=== PATIENT | female | born 1970 | race Caucasian/White ===

== ENCOUNTER → 2017-03-21 | Outpatient (CLI) | payer BC ==
--- NOTE | 2017-03-23 10:47 | MM ---
Reason for exam: screening (asymptomatic). Last mammogram was performed 1 year ago. History: Family history of breast cancer in mother at age 48 and breast cancer in paternal aunt at age 20. Took hormonal contraceptives for 20 years beginning at age 17. Physical Findings: A clinical breast exam by your physician is recommended on an annual basis and results should be correlated with mammographic findings. MG Screening Mammo w CAD Bilateral CC and MLO view(s) were taken. Prior study comparison: March 16, 2016, bilateral MG screening mammo w CAD. March 28, 2014, bilateral MG screening mammo w CAD. The breast tissue is heterogeneously dense. This may lower the sensitivity of mammography. Asymmetric nodular density upper left MLO view and inner CC view. ASSESSMENT: Incomplete: need additional imaging evaluation, BI-RAD 0 RECOMMENDATION: Special view mammogram of the left breast. If lesion persists on supplemental views, image directed ultrasound is recommended. [facility] will attempt to contact patient to return for supplemental views and ultrasound if indicated.
== END | disposition home or self-care (01) ==
LOC: RADMAMWWP 14:33
PROVIDERS: ATTEND Obstetrics & Gynecology
DX: Z12.31 Encounter for screening mammogram for malignant neoplasm of breast (principal); Z80.3 Family history of malignant neoplasm of breast

== ENCOUNTER → 2017-03-29 | Outpatient (CLI) | payer BC ==
--- NOTE | 2017-03-30 07:23 | MM ---
Reason for exam: additional evaluation requested from abnormal screening. Last mammogram was performed less than 1 month ago. History: Family history of breast cancer in mother at age 48 and breast cancer in paternal aunt at age 20. Took hormonal contraceptives for 20 years beginning at age 17. Physical Findings: Nurse did not find any significant physical abnormalities on exam. MG Work Up Mamm w CAD LT Spot compression CC, spot compression MLO, and LM view(s) were taken of the left breast. Prior study comparison: March 21, 2017, bilateral MG screening mammo w CAD. March 16, 2016, bilateral MG screening mammo w CAD. March 28, 2014, bilateral MG screening mammo w CAD. Asymmetric nodular density does not completely go away on spot CC view. These results were verbally communicated with the patient and result sheet given to the patient on 03/29/17. ASSESSMENT: Incomplete: need additional imaging evaluation, BI-RAD 0 RECOMMENDATION: Ultrasound of the left breast.
--- NOTE | 2017-03-30 07:24 | USB ---
Reason for exam: additional evaluation requested from abnormal screening. History: Family history of breast cancer in mother at age 48 and breast cancer in paternal aunt at age 20. Took hormonal contraceptives for 20 years beginning at age 17. US Breast Workup Limited LT Left breast ultrasound demonstrates a 0.7 x 0.4 x 0.8cm oval, cystic lesion at 2 o'clock. These results were verbally communicated with the patient and result sheet given to the patient on 03/29/17. ASSESSMENT: Benign, BI-RAD 2 RECOMMENDATION: Return to routine screening mammogram schedule for both breasts.
== END | disposition home or self-care (01) ==
LOC: RADMAMWWP 14:30
PROVIDERS: ATTEND Obstetrics & Gynecology
DX: R92.8 Other abnormal and inconclusive findings on diagnostic imaging of breast (principal)
CPT/HCPCS: 76642; G0206

== ENCOUNTER → 2017-06-29 | Outpatient (CLI) | payer BC | END | disposition home or self-care (01) | LOC: LABWHC1 16:29 | PROVIDERS: ATTEND Otolaryngology | DX: J30.89 Other allergic rhinitis (principal) | CPT/HCPCS: 36415 ==

== ENCOUNTER → 2018-01-10 | Outpatient (CLI) | payer OTHER ==
--- NOTE | 2018-01-10 13:01 | XR ---
EXAMINATION TYPE: XR knee complete RT DATE OF EXAM: 01/10/2018 COMPARISON: NONE HISTORY: Pain TECHNIQUE: 3 views are submitted. FINDINGS: Joint spaces are preserved. Osseous structures are intact. No acute fracture seen. Small amount of fluid in the suprapatellar bursa. IMPRESSION: 1. No acute fracture or dislocation.
--- NOTE | 2018-01-10 13:02 | XR ---
EXAMINATION TYPE: XR shoulder complete LT DATE OF EXAM: 01/10/2018 COMPARISON: NONE HISTORY: Pain TECHNIQUE: Three views are submitted. FINDINGS: The osseous structures are intact. There is no acute fracture or dislocation. Arthropathy of the AC joint with a prominent spur extending off the acromium. IMPRESSION: 1. Hypertrophic change of the acromium correlate for chronic rotator cuff disease. Correlate with MRI if there is concern for rotator cuff tear.
== END | disposition home or self-care (01) ==
LOC: RADXRMAIN 12:17
PROVIDERS: ATTEND Emergency Medicine
DX: S43.402A Unspecified sprain of left shoulder joint, initial encounter (principal); S80.01XA Contusion of right knee, initial encounter

== ENCOUNTER → 2018-03-24 | Outpatient (CLI) | payer BC ==
--- NOTE | 2018-03-28 08:13 | MM ---
Reason for exam: screening (asymptomatic). Last mammogram was performed 1 year ago. History: Family history of breast cancer in mother at age 48 and breast cancer in paternal aunt at age 20. Took hormonal contraceptives for 20 years beginning at age 17. Physical Findings: A clinical breast exam by your physician is recommended on an annual basis and results should be correlated with mammographic findings. MG Screening Mammo w CAD Bilateral CC and MLO view(s) were taken. Prior study comparison: March 21, 2017, bilateral MG screening mammo w CAD. March 16, 2016, bilateral MG screening mammo w CAD. March 28, 2014, bilateral MG screening mammo w CAD. The breast tissue is heterogeneously dense. This may lower the sensitivity of mammography. Regional punctate calcifications left upper outer quadrant unchanged. Asymmetric density lateral subareolar left breast is more defined and there may be underlying nodularity. ASSESSMENT: Incomplete: need additional imaging evaluation, BI-RAD 0 RECOMMENDATION: Special view mammogram of the left breast. If lesion persists on supplemental views, image directed ultrasound is recommended. [facility] will attempt to contact patient to return for supplemental views and ultrasound if indicated.
== END | disposition home or self-care (01) ==
LOC: RADMAMWWP 09:09
PROVIDERS: ATTEND Family Medicine
DX: Z12.31 Encounter for screening mammogram for malignant neoplasm of breast (principal)
CPT/HCPCS: 77067

== ENCOUNTER → 2018-03-31 | Outpatient (CLI) | payer BC ==
--- NOTE | 2018-04-03 08:36 | MM ---
Reason for exam: additional evaluation requested from abnormal screening. Last mammogram was performed less than 1 month ago. History: Family history of breast cancer in mother at age 48 and breast cancer in paternal aunt at age 20. Took hormonal contraceptives for 20 years beginning at age 17. Physical Findings: Nurse did not find any significant physical abnormalities on exam. MG 3D Work Up W/Cad LT Spot compression CC, LM, and CCRM view(s) were taken of the left breast. Prior study comparison: March 24, 2018, bilateral MG screening mammo w CAD. March 29, 2017, left breast MG work up mamm w CAD LT. The breast tissue is heterogeneously dense. This may lower the sensitivity of mammography. Benign calcifications. No suspicious abnormality. Previously seen anterior depth left asymmetry resolves on additional views compatible with overlap. These results were verbally communicated with the patient and result sheet given to the patient on 03/31/18. ASSESSMENT: Benign, BI-RAD 2 RECOMMENDATION: Return to routine screening mammogram schedule for both breasts.
== END | disposition home or self-care (01) ==
LOC: RADMAMWWP 14:22
PROVIDERS: ATTEND Family Medicine
DX: R92.8 Other abnormal and inconclusive findings on diagnostic imaging of breast (principal)
CPT/HCPCS: 77061; 77065

== ENCOUNTER 2018-12-30 11:43 | Emergency (ER) | payer BC ==
[2018-12-30] MEDS ORDERED: MORPHINE SULFATE 4 MG/ML SYRINGE IV STA (12:25)
[2018-12-30] MEDS ORDERED: SODIUM CHLORIDE 0.9% 1,000 ML IV STA (12:25)
[2018-12-30] MEDS ORDERED: methylPREDNISolone SOD SUCCI 125 MG/2 ML VIAL IV STA (12:26)
[2018-12-30] MEDS ORDERED: FAMOTIDINE 20 MG/2 ML VIAL IV STA (12:26)
[2018-12-30] MEDS ORDERED: diphenhydrAMINE 50 MG/ML 1 ML VIAL IVP STA (12:26)
--- NOTE | 2018-12-30 12:50 | ED ---
General Adult HPI - General Chief complaint: Abdominal Pain Stated complaint: abdominal pain, cramping and fever Time Seen by Provider: 12/30/18 12:01 Source: patient, RN notes reviewed, old records reviewed Mode of arrival: ambulatory Limitations: no limitations - History of Present Illness Initial comments: 48-year-old female patient past history of cholecystectomy presents to ED with approximately 36 hours of right lower quadrant abdominal pain. Patient reports that this began yesterday she states that she was seen at emergency room in [place]. Patient did that she was evaluated including having a CT without contrast at this time. Patient states that she was diagnosed with a gastroenteritis-like syndrome and discharged. Patient reports that she continues to have pain in her right lower quadrant. Patient also reports that she had a fever last night. Patient denies any nausea vomiting or diarrhea. Patient states that she is not . Patient denies any chest pain or shortness of breath. Systemic: Pt denies fatigue, myalgia, fever/chills, rash. Pt denies weakness, night sweats, weight loss. Neuro: Pt denies headache, visual disturbances, syncope or pre-syncope. HEENT: Pt denies ocular discharge or irritation, otalgia, rhinorrhea, pharyngitis or notable lymphadenopathy. Cardiopulmonary: Pt denies chest pain, SOB, heart palpitations, dyspnea on exertion. Abdominal/GI: Pt denies n/v/d. : Pt denies dysuria, burning w/ urination, frequency/urgency. Denies new onset urinary or bowel incontinence. MSK: Pt denies myalgia, loss of strength or function in extremities. Neuro: Pt denies new onset weakness, paresthesias. - Related Data Home Medications Medication Instructions Recorded Confirmed ALPRAZolam [Xanax XR] 0.5 mg PO DAILY 05/05/15 05/05/15 Cyclobenzaprine [Flexeril] 10 mg PO BID 05/05/15 05/05/15 DULoxetine HCL [Cymbalta] 60 mg PO DAILY 05/05/15 05/05/15 Ketorolac [Toradol] 30 mg IM Q6H PRN 05/05/15 05/05/15 Topiramate [Topamax] 50 mg PO TID 05/05/15 05/05/15 Omeprazole [PriLOSEC] 1 tab PO DAILY 05/08/15 05/08/15 Previous Rx's Medication Instructions Recorded Hydrocodone/Acetaminophen [[place] 1 - 2 each PO Q6HR PRN #60 tab 05/08/15 5-325] Allergies Allergy/AdvReac Type Severity Reaction Status Date / Time clindamycin Allergy Severe Rash/Hives Verified 05/05/15 15:31 cephalexin [From Keflex] Allergy Rash/Hives Verified 12/30/18 11:53 Sulfa (Sulfonamide Allergy Rash/Hives Verified 05/05/15 15:31 Antibiotics) Review of Systems ROS Statement: Those systems with pertinent positive or pertinent negative responses have been documented in the HPI. ROS Other: All systems not noted in ROS Statement are negative. Past Medical History Past Medical History: Neurologic Disorder, Skin Disorder Additional Past Medical History / Comment(s): HX MIGRAINES- GETS BOTOX INJECTIONS EVERY 3 MONTHS @ 'S OFFICE INTO HEAD NECK & SHOULDERS(30 INJECTIONS)-LAST TIME 02/07/15,TOLD ONCE SHE HAD HEART MURMUR-NO TX, SINCE [facility], [place] ON SCALP History of Any Multi-Drug Resistant Organisms: MRSA Date of last positivie culture/infection: 11/05/13 MDRO Source:: ANA PAULA. LEGS Past Surgical History: Ablation, Cholecystectomy Additional Past Surgical History / Comment(s): CERVICAL ABLATION 2004, D& C 200 7? Past Anesthesia/Blood Transfusion Reactions: Previous Problems w/ Anesthesia, Family History of Problems w/ Anesthesia Additional Past Anesthesia/Blood Transfusion Reaction / Comment(s): PT STATES SHE IS DIFFICULT TO INTUBATE-. SON "FREAKS OUT" AFTER ANESTHESIA Past Psychological History: Anxiety Smoking Status: Never smoker Past Alcohol Use History: Occasional Past Drug Use History: None Reported - Past Family History Mother Family Medical History: Cancer, Thyroid Disorder Additional Family Medical History / Comment(s): BREAST CA Father Family Medical History: Cancer, Hypertension Additional Family Medical History / Comment(s): SKIN CA General Exam - General Exam Comments Initial Comments: Constitutional: NAD, AOX3, Pt has pleasant affect. HEENT: NC/AT, trachea midline, neck supple, no lymphadenopathy. Posterior phary nx non erythematous, without exudates. External ears appear normal, without discharge. Mucous membranes moist. Eyes PERRLA, EOM intact. There is no scleral icterus. No pallor noted. Cardiopulmonary: RRR, no murmurs, rubs or gallops, no JVD noted. Lungs CTAB in anterior and posterior weber. No peripheral edema. Abdominal exam: Abdomen soft and non-distended. Abdomen moderately tender to palpation right lower quadrant. No other areas of abdominal tenderness. No guarding no rigidity. Bowel sounds active in LLQ. No hepatosplenomegaly. No ecchymosis Neuro: CN II-XII grossly intact. No nuchal rigidity. MSK: No posterior calf tenderness bilaterally, homans sign negative bilaterally. Posterior tibialis and radial pulse +2 bilaterally. Sensation intact in upper and lower extremities. Full active ROM in upper and lower extremities, 5/5 stregnth. Limitations: no limitations Course Vital Signs 12/30/18 12/30/18 12/30/18 11:50 13:11 13:56 Temperature 99 F 98.9 F Pulse Rate 101 H 91 86 Respiratory 18 18 15 Rate Blood Pressure 113/72 110/68 108/69 O2 Sat by Pulse 100 100 97 Oximetry 12/30/18 12/30/18 12/30/18 14:45 15:30 16:37 Temperature Pulse Rate 87 89 89 Respiratory 15 16 16 Rate Blood Pressure 110/67 105/63 113/70 O2 Sat by Pulse 95 95 96 Oximetry Medical Decision Making - Medical Decision Making 48-year-old female patient past history of cholecystectomy presents to ED with approximately 36 hours of right lower quadrant abdominal pain. Patient reports that this began yesterday she states that she was seen at emergency room in [place]. Patient did that she was evaluated including having a CT without contrast at this time. Patient states that she was diagnosed with a gastroenteritis-like syndrome and discharged. Patient reports that she continues to have pain in her right lower quadrant. Patient also reports that she had a fever last night. Patient denies any nausea vomiting or diarrhea. Patient states that she is not . Patient denies any chest pain or shortness of breath. Pt VSS, afebrile. Physical exam displayed a right lower quadrant tenderness. No guarding or rigidity. Laboratory investigations revealed mild cytosis of 12.1. CMP non-impressive. Lactic acid within normal limits. UA noncompressive. HCG negative. Influenza negative. CT abdomen and pelvis did not display acute pathology. Transvaginal ultrasound did not display any evidence of ovarian torsion. Patient to be discharged. Patient to have close outpatient follow-up with primary care provider. Patient return to ER if condition worsens in any way. Case discussed with Dr. Garcia. - Lab Data Result diagrams: 12/30/18 12:37 12/30/18 12:37 Lab Results 12/30/18 12/30/18 12/30/18 Range/Units 12:05 12:05 12:37 WBC 12.7 H (3.8-10.6) k/uL RBC 5.07 (3.80-5.40) m/uL Hgb 14.5 (11.4-16.0) gm/dL Hct 44.5 (34.0-46.0) % MCV 87.8 (80.0-100.0) fL MCH 28.6 (25.0-35.0) pg MCHC 32.6 (31.0-37.0) g/dL RDW 14.5 (11.5-15.5) % Plt Count 236 (150-450) k/uL Neutrophils % 80 % Lymphocytes % 12 % Monocytes % 4 % Eosinophils % 2 % Basophils % 0 % Neutrophils # 10.1 H (1.3-7.7) k/uL Lymphocytes # 1.6 (1.0-4.8) k/uL Monocytes # 0.5 (0-1.0) k/uL Eosinophils # 0.2 (0-0.7) k/uL Basophils # 0.1 (0-0.2) k/uL Sodium (137-145) mmol/L Potassium (3.5-5.1) mmol/L Chloride (98-107) mmol/L Carbon Dioxide (22-30) mmol/L Anion Gap mmol/L BUN (7-17) mg/dL Creatinine (0.52-1.04) mg/dL Est GFR (CKD-EPI)AfAm (>60 ml/min/1.73 sqM) Est GFR (CKD-EPI)NonAf (>60 ml/min/1.73 sqM) Glucose (74-99) mg/dL Plasma Lactic Acid Conor (0.7-2.0) mmol/L Calcium (8.4-10.2) mg/dL Total Bilirubin (0.2-1.3) mg/dL AST (14-36) U/L ALT (9-52) U/L Alkaline Phosphatase (38-126) U/L Total Protein (6.3-8.2) g/dL Albumin (3.5-5.0) g/dL Lipase (23-300) U/L Urine Color Yellow Urine Appearance Cloudy H (Clear) Urine pH 6.0 (5.0-8.0) Ur Specific [place] 1.023 (1.001-1.035) Urine Protein Trace H (Negative) Urine Glucose (UA) Negative (Negative) Urine Ketones Negative (Negative) Urine Blood Small H (Negative) Urine Nitrite Negative (Negative) Urine Bilirubin Negative (Negative) Urine Urobilinogen 2.0 (<2.0) mg/dL Ur Leukocyte Esterase Negative (Negative) Urine RBC 1 (0-5) /hpf Urine WBC 3 (0-5) /hpf Ur Squamous Epith Cells 2 (0-4) /hpf Urine Bacteria Many H (None) /hpf Urine Mucus Many H (None) /hpf Urine HCG, Qual Not Detected (Not Detectd) Influenza Type A RNA (Not Detectd) Influenza Type B (PCR) (Not Detectd) 12/30/18 12/30/18 12/30/18 Range/Units 12:37 12:37 12:50 WBC (3.8-10.6) k/uL RBC (3.80-5.40) m/uL Hgb (11.4-16.0) gm/dL Hct (34.0-46.0) % MCV (80.0-100.0) fL MCH (25.0-35.0) pg MCHC (31.0-37.0) g/dL RDW (11.5-15.5) % Plt Count (150-450) k/uL Neutrophils % % Lymphocytes % % Monocytes % % Eosinophils % % Basophils % % Neutrophils # (1.3-7.7) k/uL Lymphocytes # (1.0-4.8) k/uL Monocytes # (0-1.0) k/uL Eosinophils # (0-0.7) k/uL Basophils # (0-0.2) k/uL Sodium 138 (137-145) mmol/L Potassium 3.9 (3.5-5.1) mmol/L Chloride 107 (98-107) mmol/L Carbon Dioxide 23 (22-30) mmol/L Anion Gap 8 mmol/L BUN 16 (7-17) mg/dL Creatinine 1.04 (0.52-1.04) mg/dL Est GFR (CKD-EPI)AfAm 75 (>60 ml/min/1.73 sqM) Est GFR (CKD-EPI)NonAf 65 (>60 ml/min/1.73 sqM) Glucose 92 (74-99) mg/dL Plasma Lactic Acid Conor 0.8 (0.7-2.0) mmol/L Calcium 9.3 (8.4-10.2) mg/dL Total Bilirubin 2.1 H (0.2-1.3) mg/dL AST 25 (14-36) U/L ALT 40 (9-52) U/L Alkaline Phosphatase 68 (38-126) U/L Total Protein 7.2 (6.3-8.2) g/dL Albumin 4.2 (3.5-5.0) g/dL Lipase 78 (23-300) U/L Urine Color Urine Appearance (Clear) Urine pH (5.0-8.0) Ur Specific [place] (1.001-1.035) Urine Protein (Negative) Urine Glucose (UA) (Negative) Urine Ketones (Negative) Urine Blood (Negative) Urine Nitrite (Negative) Urine Bilirubin (Negative) Urine Urobilinogen (<2.0) mg/dL Ur Leukocyte Esterase (Negative) Urine RBC (0-5) /hpf Urine WBC (0-5) /hpf Ur Squamous Epith Cells (0-4) /hpf Urine Bacteria (None) /hpf Urine Mucus (None) /hpf Urine HCG, Qual (Not Detectd) Influenza Type A RNA Not Detected (Not Detectd) Influenza Type B (PCR) Not Detected (Not Detectd) Disposition Clinical Impression: Abdominal pain Disposition: HOME SELF-CARE Condition: Stable Instructions (If sedation given, give patient instructions): Abdominal Pain (ED) Additional Instructions: Patient to adhere to previously discussed treatment plan and will take medication(s) as directed. Patient to follow up with PCP in 1-2 days. Patient to return to ED if symptoms do not improve. Please follow-up with primary care provider in 1-2 days. Please return to ER condition worsens in any way. Is patient prescribed a controlled substance at d/c from ED?: No Referrals: Omari Villasenor MD [Primary Care Provider] - 1-2 days
[2018-12-30 12:51] LABS: Basophils # (A) 0.1 k/uL (0-0.2); Basophils % (A) 0 %; Eosinophils # (A) 0.2 k/uL (0-0.7); Eosinophils % (A) 2 %; HCT 44.5 % (34.0-46.0); HGB 14.5 gm/dL (11.4-16.0); Lymphocytes # (A) 1.6 k/uL (1.0-4.8); Lymphocytes % (A) 12 %; MCH 28.6 pg (25.0-35.0); MCHC 32.6 g/dL (31.0-37.0); MCV 87.8 fL (80.0-100.0); Mean Platelet Volume 7.9; Monocytes # (A) 0.5 k/uL (0-1.0); Monocytes % (A) 4 %; Neutrophils # (A) 10.1 k/uL (1.3-7.7); Neutrophils % (A) 80 %; Platelet Count 236 k/uL (150-450); RBC 5.07 m/uL (3.80-5.40); RDW 14.5 % (11.5-15.5); WBC 12.7 k/uL (3.8-10.6)
[2018-12-30 13:09] LABS: Albumin 4.2 g/dL (3.5-5.0); Calcium 9.3 mg/dL (8.4-10.2); Potassium 3.9 mmol/L (3.5-5.1); Total Bilirubin 2.1 mg/dL (0.2-1.3); Total Protein 7.2 g/dL (6.3-8.2)
[2018-12-30 13:12] VITALS: TEMP 98.9
[2018-12-30 13:42] LABS: Appearance,Urine Cloudy (Clear); Bacteria,Urine Many /hpf; Bilirubin,Urine Negative (Negative); Blood,Urine Small (Negative); Color,Urine Yellow; Glucose,Urine (UA) Negative (Negative); Ketones,Urine Negative (Negative); Leukocyte Esterase,Urine Negative (Negative); Mucus,Urine Many /hpf; Nitrite,Urine Negative (Negative); Protein,Urine Trace (Negative); RBC,Urine 1 /hpf (0-5); Specific Gravity,Urine 1.023 (1.001-1.035); Squamous Epithelial Cell,Urine 2 /hpf (0-4)
--- NOTE | 2018-12-30 14:50 | CT ---
EXAMINATION TYPE: CT abdomen pelvis w con DATE OF EXAM: 12/30/2018 COMPARISON: None HISTORY: Pain CT DLP: mGycm Automated exposure control for dose reduction was used. TECHNIQUE: Helical acquisition of images was performed from the lung bases through the pelvis. CONTRAST: The IV contrast was Isovue 100 mL. FINDINGS: There is mild atelectasis at the posterior lung bases. There is no pleural effusion. Heart size is no rmal. There is no pericardial effusion. Stomach appears normal. There are clips from cholecystectomy. Bile ducts are not dilated. Liver appears normal. Spleen and pancreas appear normal. There is no adrenal mass. Kidneys show satisfactory contrast opacification. There is no hydronephrosi s. Bladder distends smoothly. There is no inguinal hernia. There is no retroperitoneal adenopathy. Ut erus is anteverted. There is tiny amount of free fluid in the pelvis. The appendix appears normal. There is no mesenteric edema. There is no free air. There is no sign of ascites. The bony structures appear intact. IMPRESSION: THERE IS TRACE AMOUNT OF FREE FLUID IN THE PELVIS. Minimal subsegmental atelectasis at the lung bases .
--- NOTE | 2018-12-30 16:30 | US ---
EXAMINATION TYPE: US pelvis complete transvag DATE OF EXAM: 12/30/2018 COMPARISON: NONE CLINICAL HISTORY: pain r/o torsion . pelvic cramping, cervical ablation, A1, irregular cycles TECHNIQUE: TA/TV. Transabdominal sonographic images of the pelvis were acquired. Transvaginal sono graphic images were medically necessary to better assess the following anatomy: ovary Date of LMP: 10/29/2018 EXAM MEASUREMENTS: Uterus: 9.2 x 5.4 x 4.2 cm Endometrial Stripe: 0.5 cm Right Ovary: 2.4 x 2.3 x 1.8 cm Left Ovary: 4.1 x 2.5 x 2.5 cm only visualized ovaries transabdominally due to bowel gas and high placement within pelvis. 1. Uterus: Anteverted wnl 2. Endometrium: wnl 3. Right Ovary: small follicle versus involuting cyst seen 4. Left Ovary: small follicle versus involuting cyst seen Spectral, color and waveform doppler imaging shows good arterial flow within the ovaries; there is no evidence for ovarian torsion. Unable to obtain venous waveform due to doppler performed transabdom inally 5. Bilateral Adnexa: wnl 6. Posterior cul-de-sac: wnl IMPRESSION: No evidence of ovarian torsion. Normal uterus and endometrium. No adnexal mass or free fl uid.
[2018-12-30 17:23] VITALS: BP 95/56; PULSE 86; RESP 18
== END 2018-12-30 17:23 | disposition home or self-care (01) ==
LOC: EC 11:43
DX: R10.31 Right lower quadrant pain (principal); R79.89 Other specified abnormal findings of blood chemistry; R50.9 Fever, unspecified; F41.9 Anxiety disorder, unspecified; Z88.1 Allergy status to other antibiotic agents; Z88.2 Allergy status to sulfonamides; Z79.899 Other long term (current) drug therapy; Z86.14 Personal history of Methicillin resistant Staphylococcus aureus infection; Z86.69 Personal history of other diseases of the nervous system and sense organs; Z90.49 Acquired absence of other specified parts of digestive tract
CPT/HCPCS: 36415; 80053; 83605; 83690; 85025; 81001; 81025; 87502; 93975; 76856; 76830; 74177; 99285; 96374; 96375 ×3; 96361 ×2; J2270; J1200; J2930; Q9967

== ENCOUNTER → 2019-01-10 | Outpatient (CLI) | payer BC ==
[2019-01-10 16:26] LABS: Basophils # (A) 0.1 k/uL (0-0.2); Basophils % (A) 1 %; Eosinophils # (A) 0.4 k/uL (0-0.7); Eosinophils % (A) 4 %; HCT 40.7 % (34.0-46.0); HGB 13.3 gm/dL (11.4-16.0); Lymphocytes # (A) 2.3 k/uL (1.0-4.8); Lymphocytes % (A) 22 %; MCH 28.6 pg (25.0-35.0); MCHC 32.6 g/dL (31.0-37.0); MCV 87.6 fL (80.0-100.0); Mean Platelet Volume 7.6; Monocytes # (A) 0.5 k/uL (0-1.0); Monocytes % (A) 4 %; Neutrophils # (A) 7.2 k/uL (1.3-7.7); Neutrophils % (A) 68 %; RBC 4.65 m/uL (3.80-5.40); RDW 13.5 % (11.5-15.5); WBC 10.6 k/uL (3.8-10.6)
[2019-01-10 16:29] LABS: Platelet Count 477 k/uL (150-450)
[2019-01-10 22:50] LABS: Scleroderma SC-70 Ab <0.2 AI
[2019-01-10 23:01] LABS: Thyroid Peroxidase Antibodies 36.8 U/mL (0.0-60.0); Vitamin D 25 Hydroxy 35.4 ng/mL (30.0-100.0)
[2019-01-10 23:04] LABS: T4, Free (Free Thyroxine) 1.1 ng/dL (0.80-1.80)
== END | disposition home or self-care (01) ==
LOC: LABWHC1 15:23
PROVIDERS: ATTEND Otolaryngology
DX: L50.3 Dermatographic urticaria (principal); F45.8 Other somatoform disorders; R42 Dizziness and giddiness; R53.83 Other fatigue
CPT/HCPCS: 36415; 82306; 84439; 84443; 85025; 86038; 86235; 86376

== ENCOUNTER → 2019-04-02 | Outpatient (CLI) | payer BC ==
--- NOTE | 2019-04-03 09:00 | MM ---
Reason for exam: screening (asymptomatic). Last mammogram was performed 1 year ago. History: Family history of breast cancer in mother at age 48 and breast cancer in paternal aunt at age 20. Took hormonal contraceptives for 20 years beginning at age 17. Physical Findings: A clinical breast exam by your physician is recommended on an annual basis and results should be correlated with mammographic findings. MG 3D Screening Mammo W/Cad Bilateral CC and MLO view(s) were taken. Prior study comparison: March 31, 2018, left breast MG 3d work up w/cad LT. March 24, 2018, bilateral MG screening mammo w CAD. The breast tissue is heterogeneously dense. This may lower the sensitivity of mammography. No significant changes when compared with prior studies. ASSESSMENT: Benign, BI-RAD 2 RECOMMENDATION: Routine screening mammogram of both breasts in 1 year.
== END | disposition home or self-care (01) ==
LOC: RADMAMWWP 10:56
PROVIDERS: ATTEND Obstetrics & Gynecology
DX: Z12.31 Encounter for screening mammogram for malignant neoplasm of breast (principal); Z80.3 Family history of malignant neoplasm of breast
CPT/HCPCS: 77063; 77067

== ENCOUNTER → 2020-04-04 | Outpatient (CLI) | payer BC ==
--- NOTE | 2020-04-08 07:41 | MM ---
Reason for exam: screening (asymptomatic). Last mammogram was performed 1 year ago. History: Family history of breast cancer in mother at age 48 and breast cancer in paternal aunt at age 20. Took hormonal contraceptives for 20 years beginning at age 17. Physical Findings: A clinical breast exam by your physician is recommended on an annual basis and results should be correlated with mammographic findings. MG 3D Screening Mammo W/Cad Bilateral CC and MLO view(s) were taken. Prior study comparison: April 02, 2019, bilateral MG 3d screening mammo w/cad. March 31, 2018, left breast MG 3d work up w/cad LT. The breast tissue is heterogeneously dense. This may lower the sensitivity of mammography. Regional punctate calcifications on the left. No persisting abnormality on 3D images. No significant changes when compared with prior studies. ASSESSMENT: Benign, BI-RAD 2 RECOMMENDATION: Routine screening mammogram of both breasts in 1 year.
== END | disposition home or self-care (01) ==
LOC: RADMAMWWP 13:18
PROVIDERS: ATTEND Obstetrics & Gynecology
DX: Z12.31 Encounter for screening mammogram for malignant neoplasm of breast (principal); Z80.3 Family history of malignant neoplasm of breast
CPT/HCPCS: 77063; 77067

== ENCOUNTER → 2021-09-02 | Outpatient (CLI) | payer BC ==
--- NOTE | 2021-09-04 12:08 | MM ---
Reason for exam: screening (asymptomatic). Last mammogram was performed 1 year and 5 months ago. History: Family history of breast cancer in mother at age 48 and breast cancer in paternal aunt at age 20. Took hormonal contraceptives for 20 years beginning at age 17. Physical Findings: A clinical breast exam by your physician is recommended on an annual basis and results should be correlated with mammographic findings. MG 3D Screening Mammo W/Cad Bilateral CC and MLO view(s) were taken. Prior study comparison: April 04, 2020, bilateral MG 3d screening mammo w/cad. April 02, 2019, bilateral MG 3d screening mammo w/cad. The breast tissue is heterogeneously dense. This may lower the sensitivity of mammography. Stable asymmetric densities on the left. Stable regional punctate calcifications left breast. No significant changes when compared with prior studies. ASSESSMENT: Benign, BI-RAD 2 RECOMMENDATION: Routine screening mammogram of both breasts in 1 year.
== END | disposition home or self-care (01) ==
LOC: RADMAMWWP 15:14
PROVIDERS: ATTEND Obstetrics & Gynecology
DX: Z12.31 Encounter for screening mammogram for malignant neoplasm of breast (principal); Z80.3 Family history of malignant neoplasm of breast
CPT/HCPCS: 77063; 77067

== ENCOUNTER → 2022-10-15 | Outpatient (CLI) | payer BC ==
--- NOTE | 2022-10-18 08:21 | MM ---
Reason for Exam: Screening (asymptomatic). Last mammogram was performed 1 year(s) and 1 month(s) ago. Patient History: Menarche at age 14. First Full-Term at age 32. Late child-bearing (after 30). Postmenopausal. Hormonal Contraceptives for 20 years from age 17 until age 37. Paternal aunt had breast cancer, age 20. Mother had breast cancer, age 48. Risk Values: Elena 5 year model risk: 2.0%. NCI Lifetime model risk: 17.3%. Prior Study Comparison: 04/02/2019 Bilateral Screening Mammogram, [facility]. 04/04/2020 Bilateral Screening Mammogram, [facility]. 09/02/2021 Bilateral Screening Mammogram, [facility]. Tissue Density: The breast tissue is heterogeneously dense. This may lower the sensitivity of mammography. Findings: Analyzed By CAD. There is no suspicious group of microcalcifications or new suspicious mass in either breast. Stable asymmetric densities on the left. Stable regional punctate calcifications in the left breast. Overall Assessment: Benign, BI-RAD 2 Management: Screening Mammogram of both breasts in 1 year. A clinical breast exam by your physician is recommended on an annual basis and results should be correlated with mammographic findings. Electronically signed and approved by: Vishal Cardenas D.O.
== END | disposition home or self-care (01) ==
LOC: RADMAMWWP 08:36
PROVIDERS: ATTEND Obstetrics & Gynecology
DX: Z12.31 Encounter for screening mammogram for malignant neoplasm of breast (principal); Z78.0 Asymptomatic menopausal state; Z80.3 Family history of malignant neoplasm of breast
CPT/HCPCS: 77063; 77067

== ENCOUNTER → 2023-10-17 | Outpatient (CLI) | payer BC ==
--- NOTE | 2023-10-18 08:14 | MM ---
Reason for Exam: Screening (asymptomatic). Last screening mammogram was performed 12 month(s) ago. Patient History: Menarche at age 14. First Full-Term at age 32. Late child-bearing (after 32). Postmenopausal. Patient has history of breast feeding. Hormonal Contraceptives for 20 years from age 17 until age 37. Paternal aunt had breast cancer, age 20. Mother had breast cancer, age 48. Risk Values: Elena 5 year model risk: 2.0%. NCI Lifetime model risk: 17.0%. Prior Study Comparison: 03/24/2018 Bilateral Screening Mammogram, [facility]. 03/31/2018 Left Diagnostic Mammogram, [facility]. 04/02/2019 Bilateral Screening Mammogram, [facility]. 04/04/2020 Bilateral Screening Mammogram, [facility]. 09/02/2021 Bilateral Screening Mammogram, [facility]. 10/15/2022 Bilateral MG 3D screening mammo w/cad, [facility]. Tissue Density: The breast tissue is heterogeneously dense. This may lower the sensitivity of mammography. Findings: Analyzed By CAD. There is no suspicious group of microcalcifications or new suspicious mass in either breast. Overall Assessment: Benign, BI-RAD 2 Management: Screening Mammogram of both breasts in 1 year. . Patient should continue monthly self-breast exams. A clinical breast exam by your physician is recommended on an annual basis. This exam should not preclude additional follow-up of suspicious palpable abnormalities. Note on Elena scores and lifetime risk: 1. A Elena score greater than 3% is considered moderate risk. If this is the case, consider specialist referral to assess eligibility for a risk reducing agent. 2. If overall lifetime risk for the development of breast cancer is 20% or higher, the patient may qualify for future screening with alternating mammogram and breast MRI. Electronically signed and approved by: Lito Seo M.D. [facility]
== END | disposition home or self-care (01) ==
LOC: RADMAMWWP 10:23
PROVIDERS: ATTEND Obstetrics & Gynecology
DX: Z12.31 Encounter for screening mammogram for malignant neoplasm of breast (principal); Z80.3 Family history of malignant neoplasm of breast; Z78.0 Asymptomatic menopausal state
CPT/HCPCS: 77063; 77067